=== PATIENT | male | born 1955 | race Caucasian/White ===

== ENCOUNTER 2024-01-10 15:31 | Emergency (ER) | payer MEDICARE, SELFPAY ==
[2024-01-10 15:38] VITALS: BP 115/78
--- NOTE | 2024-01-10 17:33 | ED.GENMED ---
History of Present Illness
<Salma Pickens PA-C - Last Filed: 01/12/24 13:52>
General
Chief Complaint: Musculo-Skeletal Complaint
Source: patient
Exam Limitations: none
Time Seen by Provider: 01/10/24 17:02
Nursing documentation reviewed up to this point in time: agreed with
History of Present Illness
History of Present Illness:
pt is a 68 y/o M with R hand dominance
says that he developed pain and swelling to the L index finger 4 hours [employer] today without any obvious injury
he does have a new puppy but cannot recall any wounds
he has no redness, warmth, numbness/tingling
pain is mostly at the PIP joint ad it is swollen there
he does have h/o arhtirits in the hips and is scheduled for hip replacement surgery in 3 days in [facility] and his surgeon wanted wto know if it was infected
he has no fever/chills
Past History
<Salma Pickens PA-C - Last Filed: 01/12/24 13:52>
Past History
ED Past Medical History: Other (arthritis)
ED Past Surgical History: None
Social History
Tobacco: Non-smoker
Alcohol: None
Review of Systems
<Salma Pickens PA-C - Last Filed: 01/12/24 13:52>
Review of Systems
Allergies reviewed?: Yes
All Other Systems: Not applicable
Phy Exam
<Salma Pickens PA-C - Last Filed: 01/12/24 13:52>
Physical Exam
Physical Exam:
GENERAL: Alert , in no apparent distress, comfortable at rest
HEAD: NCAT
CV: 2+ radial uplses
NEUROLOGICAL: Alert and oriented, no focal neuro deficits, , 5/5 strength, sensation intact, ambulation slight limp right leg
SKIN: Warm and dry, NO SKIN MARKINGS, NO REDNESS, NO WARMTH
NORMAL CAP REFILL
MUSCULOSKELETAL: tenderness and swelling to the PIP joint of the L index finger with limited flexion of the PIP jiont, can flex 30 degrees,
MCP joint nontender nomral
nodislocaration
PSYCH: Normal and appropriate interaction.
Course
<Salma Pickens PA-C - Last Filed: 01/12/24 13:52>
Orders/Labs/Results
Orders:
Orders
01/10/24 15:33
CR Finger(s)/thumb Min 2 Vw Lt Urgent
Comment:
Reason For Exam: swelling pain
Indicate Which Finger:: Index Finger
01/10/24 17:48
Ibuprofen [Motrin] 600 mg PO NOW STA
Vital Signs
Initial and Last Documented VS:
Initial Vital Signs
Temp Pulse Resp BP Pulse Ox
97.6 F 60 16 115/78 100
01/10/24 15:38 01/10/24 15:38 01/10/24 15:38 01/10/24 15:38 01/10/24 15:38
Last Documented Vital Signs
Temp Pulse Resp BP Pulse Ox
97.6 F 60 16 115/78 100
01/10/24 15:38 01/10/24 15:38 01/10/24 15:38 01/10/24 15:38 01/10/24 15:38
<Yamile Sparks DO - Last Filed: 01/10/24 18:05>
Orders/Labs/Results
Orders:
Orders
01/10/24 15:33
CR Finger(s)/thumb Min 2 Vw Lt Urgent
Comment:
Reason For Exam: swelling pain
Indicate Which Finger:: Index Finger
01/10/24 17:48
Ibuprofen [Motrin] 600 mg PO NOW STA
Vital Signs
Initial and Last Documented VS:
Initial Vital Signs
Temp Pulse Resp BP Pulse Ox
97.6 F 60 16 115/78 100
01/10/24 15:38 01/10/24 15:38 01/10/24 15:38 01/10/24 15:38 01/10/24 15:38
Last Documented Vital Signs
Temp Pulse Resp BP Pulse Ox
97.6 F 60 16 115/78 100
01/10/24 15:38 01/10/24 15:38 01/10/24 15:38 01/10/24 15:38 01/10/24 15:38
<Salma Pickens PA-C - Last Filed: 01/12/24 13:52>
MDM/Problems Addressed
Differential Diagnosis Includes:
arthritis, tendinitis
MDM/Problems Addressed:
68 y/o M
healthy
no trauma but started with pain in the PIP joint of the L index finger today
has a new puppy but has no recollection of any bites
no skin changes, warmth, redness
no drainage
no wounds
pain with limited ROM o fhte PIP joint
xray indep reviewed shows mild OA of the L inde ffinger PIP and sts of the area
no gas
pt concerned because of his hip replacement surgery
given lack of skin changes, fever, h/o wounds, doubt this is infectious
will treat as if this is inflammatory
nsaids and splinting
ice
RETURN PRECAUTIONS
seen by ed attending who agreed
<Salma Pickens PA-C - Last Filed: 01/12/24 13:52>
*Critical Care Note
Total Time (30-74mins, 75-104mins- exclusive of procedures): Not Applicable
ED Attending Note
<Salma Pickens PA-C - Last Filed: 01/12/24 13:52>
-
Portions of this chart may have been created with voice recognition software.� Occasional wrong word or��sound alike� substitutions may have occurred due to the inherent limitations of voice recognition software.
<Yamile Sparks, DO - Last Filed: 01/10/24 18:05>
ED Attending Note
Patient seen and examined by attending physician: Yes
I performed the substantive portion of visit, reviewed & personally made and approve the management plan that is documented in note by myself or NAHOMY.: Yes
I performed a history and physical exam of patient and discussed management with resident, I reviewed resident's note and agree with documented findings and plan of care.: Yes
ED Attending Note:
Patient seen and evaluated at bedside, 68-year-old male with history of arthritis presenting for concern of swelling to his left index finger. Reports he noticed swelling today, without any inciting injury or trauma. Does note that he has a new
puppy, however denies any bites of the skin. Denies issues with range of motion. Reports that he supposed to have his hip replaced on Tuesday secondary to arthritis, discussed with his doctor and was advised to come to the hospital to make sure
that his finger is not infected. Denies fever, numbness, tingling
On exam, patient is well-appearing, nontoxic. Benign examination of the left index finger. Mild swelling to the PIP. However range of motion is intact, without erythema or warmth. Distal sensation and pulses intact. At this time lower suspicion
for acute infection. X-ray obtained, does show some soft tissue swelling, with suspected arthritic component. Suspected inflammatory arthropathy. Without present indication for antibiotics. Advise compression, Tylenol or ibuprofen for pain.
Feel stable for discharge, however advise continued monitoring of symptoms and if any development of warmth or redness develops, immediate return to the emergency department. Patient verbalized understanding
Discharge Plan
Departure
Patient Disposition: Home (Routine Discharge)
Date of Disposition: 01/10/24
Time of Disposition: 17:47
Patient with high blood pressure during this ER visit?: No
Condition: Fair
Covid-19: Not Applicable
Discharge Problem:
Arthritis of finger of left hand
Instructions: Splint Care
Referrals:
[facility] [Family Provider] -
Activity Restrictions/Additional Instructions:
YOUR FINGER DOES NOT APPEAR INFECTED
TRY RESTING IT WITH SPLINTING (YOU CAN REMOVE AT NIGHT)
MOTRIN 600 MG 2-3 TIMES A DAY FOR INFLAMMATION WITH FOOD FOR 2-3 DAYS.
ICE OFF AND ON
WATCH FOR SIGNS OF INFECTION LIKE REDNESS, WARMTH, SKIN CHANGES, FEVER, ETC AND RETURN FOR THESE NEEDED
OTHERWISE FOLLOW UP WITH ORTHOPEDICS
Interventions
Interventions:
*Risk Screen - Suicide Last Done: 01/10/24 15:41
*General Assessment Last Done: 01/10/24 18:00
*Neglect/Abuse Screening Last Done: 01/10/24 15:41
ED- Fall Risk Assessment Last Done: 01/10/24 18:00
*ED COVID-19 Vaccine History Last Done: 01/10/24 15:41
*Nursing Disposition Last Done: 01/10/24 18:00
ED-Musculoskeletal Assessment Last Done: 01/10/24 18:00
Discharge Date and Time
Discharge Date/Time: 01/10/24 18:01
Print Language: NAMIBIAN
== END 2024-01-10 18:01 | disposition home or self-care (01) ==
LOC: EMR 15:31
PROVIDERS: EMERGENCY PHYSICIAN Student in an Organized Health Care Education/Training Program
DX: M19.042 Primary osteoarthritis, left hand (principal)
CPT/HCPCS: 99283; 73140

== ENCOUNTER → 2024-02-03 06:31 | Outpatient (REF) | payer MEDICARE, SELFPAY ==
[2024-02-03 07:35] LABS: % Basophils 1.6 % (0-2); % Eosinophils 12.4 % (0-6); % Immature Granulocytes 0.2 % (0-0.5); % Lymphocytes 29.6 % (20.5-51.1); % Monocytes 12.4 % (1.7-9.3); % Neutrophils 43.8 % (42.2-75.2); Absolute Basophils 0.1 10^3/uL (0-0.2); Absolute Eosinophils 0.5 10^3/uL (0-0.7); Absolute Lymphocytes 1.3 10^3/uL (1.2-3.4); Absolute Monocytes 0.5 10^3/uL (0.1-0.6); Absolute Neutrophils 1.9 10^3/uL (1.4-6.5); Hematocrit 41.5 % (39.0-52.0); Hemoglobin 14.4 g/dL (13.0-18.0); Mean Corp Hgb Conc. 34.7 g/dL (33.0-37.0); Mean Corpuscular Hgb 30.8 pg (27.0-31.0); Mean Corpuscular Volume 88.7 fL (80.0-94.0); Mean Platelet Volume 9.6 fL (7.4-10.4); Nucleated Red Blood Cells % 0 % (-); Platelet Count 299 10^3/uL (130-400); Red Blood Cell Count 4.68 10^6/uL (4.70-6.10); Red Cell Dist. Width 12.2 % (11.5-14.5); White Blood Cell Count 4.3 10^3/uL (4.8-10.8)
[2024-02-03 07:50] LABS: ALT (SGPT) 46 U/L (0-50); AST (SGOT) 41 U/L (17-59); Albumin 4.2 g/dl (3.5-5.0); Alkaline Phosphatase 106 U/L (38-126); Blood Urea Nitrogen 21 mg/dl (9-20); Calcium 9.7 mg/dl (8.4-10.2); Carbon Dioxide 31 mmol/L (22-30); Chloride 102 mmol/L (98-107); Glucose 95 mg/dl (70-99); HDL Cholesterol 52 mg/dl; LDL Cholesterol, Calculated 137 mg/dl; Potassium 4.7 mmol/L (3.5-5.1); Sodium 142 mmol/L (135-145); Total Bilirubin 0.9 mg/dl (0.2-1.3); Total Cholesterol 204 mg/dl (50-199); Total Protein 7.2 g/dl (6.3-8.2); Triglyceride 78 mg/dl (10-149); Very Low Density Lipoprotein 15 mg/dl (0-30); eGFR > 60.00
[2024-02-03 08:18] LABS: TSH Reflex To Free T4 2.51 uIU/ml (0.47-4.68)
== END ==
LOC: REG 06:31
DX: Z76.89 Persons encountering health services in other specified circumstances (principal); Z01.812 Encounter for preprocedural laboratory examination; Z13.220 Encounter for screening for lipoid disorders; Z13.29 Encounter for screening for other suspected endocrine disorder; Z96.641 Presence of right artificial hip joint
CPT/HCPCS: 36415; 80053; 80061; 84443; 85025

== ENCOUNTER → 2024-02-17 06:29 | Outpatient (REF) | payer MEDICARE, SELFPAY | LOC: RAD 06:29 | PROVIDERS: FAMILY PHYSICIAN Family Medicine | DX: Z87.891 Personal history of nicotine dependence (principal) | CPT/HCPCS: 76770 ==